=== PATIENT | female | born 1950 | race Caucasian/White ===

== ENCOUNTER 2020-11-20 14:52 | Outpatient (CLI) | payer MEDICARE, BC | END 2020-11-20 14:53 | disposition home or self-care (01) | LOC: BICMRI 14:52 | PROVIDERS: ATTEND Surgery | DX: M48.061 Spinal stenosis, lumbar region without neurogenic claudication (principal); M43.16 Spondylolisthesis, lumbar region; M47.816 Spondylosis without myelopathy or radiculopathy, lumbar region | CPT/HCPCS: 72110; 72148 ==

== ENCOUNTER 2021-06-21 12:03 | Outpatient (CLI) | payer MEDICARE, BC | END 2021-06-21 12:04 | disposition home or self-care (01) | LOC: TBSIIMAG 12:03 | PROVIDERS: ATTEND Orthopaedic Surgery | DX: M17.11 Unilateral primary osteoarthritis, right knee (principal) ==

== ENCOUNTER 2021-08-29 12:15 | Inpatient (IN) | payer MEDICARE, BC ==
[2021-08-28 15:24] VITALS: BMI 29.4
[2021-09-03] MEDS ORDERED: SUGAMMADEX SODIUM 200 MG/2 ML VIAL ONE (06:35)
[2021-09-03] MEDS ORDERED: Fentanyl 250 MCG/5 ML VIAL ONE ×3 (06:35→09:36)
[2021-09-03] MEDS ORDERED: Midazolam HCl 2 mg/2 ml Vial ONE (06:39)
[2021-09-03] MEDS ORDERED: Vancomycin 1 GM/200 ML BAG ONE (06:46)
[2021-09-03] MEDS ORDERED: Tranexamic Acid 1,000 MG/10 ML VIAL ONE (06:46)
[2021-09-03] MEDS ORDERED: Sodium Chloride 0.9% 100 ML ONE (06:46)
[2021-09-03] MEDS ORDERED: ceFAZolin Sodium (SDC) 2 GM/100 ML BAG ONE ×2 (06:53)
[2021-09-03] MEDS ORDERED: Ondansetron PF 4 MG/2 ML Vial ONE ×2 (07:01→11:37)
[2021-09-03] MEDS ORDERED: Famotidine/PF 20 mg/2ml Vial ONE (07:04)
[2021-09-03] MEDS ORDERED: Fentanyl 100 MCG/2 ML VIAL SLOW IVP PRN (07:21)
[2021-09-03] MEDS ORDERED: Promethazine HCl 25 MG/ML VIAL IM PRN ×2 (07:30→09:33)
[2021-09-03] MEDS ORDERED: Zolpidem Tartrate 5 MG TAB PO PRN ×2 (07:30→09:33)
[2021-09-03] MEDS ORDERED: Ropivacaine 0.2% 550 ML 550 ML NERVE BLCK SCH (07:30)
[2021-09-03] MEDS ORDERED: Ondansetron PF 4 MG/2 ML Vial IVP PRN ×2 (07:30→09:33)
[2021-09-03] MEDS ORDERED: HYDROcodone/Acetaminophen 10/325 mg Tablet PO PRN ×3 (07:30→09:33)
[2021-09-03] MEDS ORDERED: hydrALAZINE 20 MG/ML VIAL ONE ×2 (08:04→09:33)
[2021-09-03] MEDS ORDERED: HYDROmorphone 2 MG/ML VIAL ONE (09:07)
[2021-09-03] MEDS ORDERED: Ketorolac Tromethamine 30 MG/ML VIAL IM PRN (09:33)
[2021-09-03] MEDS ORDERED: diphenhydrAMINE 25 MG CAP PO PRN (09:33)
[2021-09-03] MEDS ORDERED: Acetaminophen 325 MG TAB PO PRN (09:33)
[2021-09-03] MEDS ORDERED: Aspirin 81 mg Enteric Coated Tablet PO SCH (10:15)
[2021-09-03] MEDS ORDERED: HYDROmorphone 0.5 MG/0.5 ML SYRINGE ONE (10:18)
[2021-09-03] MEDS ORDERED: Lidocaine 1% PF 5 ML VIAL ONE (11:37)
[2021-09-03] MEDS ORDERED: Dexamethasone 20 MG/5 ML VIAL ONE (11:37)
[2021-09-03] MEDS ORDERED: PROPOFOL 200 MG/20 ML VIAL ONE (11:37)
[2021-09-03] MEDS ORDERED: Bupivacaine HCl 0.5%/Epinephrine 1:200,000/PF 30 ml Vial ONE (11:37)
[2021-09-03] MEDS: HYDROcodone/Acetaminophen 10/325 mg Tablet PO PRN ×2 (12:13→21:07)
[2021-09-03] MEDS: Ketorolac Tromethamine 30 MG/ML VIAL IVP SCH ×3 (12:14→22:57)
[2021-09-03] MEDS ORDERED: CEFAZOLIN 2 GM, IV Admixture Fee-Chemo 1 UNITS in Sodium Chloride 0.9% 100 ML IVPB SCH (15:00)
[2021-09-03] MEDS: Sodium Chloride 0.9% 1,000 ML IV SCH ×2 (19:21→21:39)
[2021-09-03] MEDS: carBAMazepine 200 MG TAB PO SCH (19:24)
[2021-09-03] MEDS ORDERED: Vancomycin 1 GM in Premix Bag 1 BAG IVPB SCH (20:00)
[2021-09-03] MEDS: Loratadine 10 MG TAB PO SCH (21:07)
[2021-09-03] MEDS: Aspirin 81 mg Enteric Coated Tablet PO SCH (21:07)
[2021-09-03] MEDS: Azelastine 137 MCG/Spray 30 ML NS SCH (21:07)
[2021-09-03] MEDS: Fluticasone Propionate Nasal Spray 16 gm Bottle NASAL SCH (21:08)
[2021-09-04] MEDS ORDERED: CEFAZOLIN 2 GM, Admixture Fee 1 EACH in Sodium Chloride 0.9% 100 ML IVPB SCH (04:00)
[2021-09-04 05:20] LABS: Hemoglobin 10.8 g/dL (12.0-16.0); Mean Corpuscular HGB CONC 33.5 g/dL (32.0-36.0); Mean Corpuscular Hemoglobin 32.3 pg (27.0-31.0); Mean Corpuscular Volume 96.3 fL (78.0-98.0); Mean Platelet Volume 7.3 fL (7.4-10.4); Platelet Count 153 thou/uL (130-400); RBC Distribution Width 12.5 % (11.5-14.5); Red Blood Cell (RBC) Count 3.34 mill/uL (4.20-5.40); White Blood Cell (WBC) Count 8.9 thou/uL (4.8-10.8)
[2021-09-04] MEDS: Ketorolac Tromethamine 30 MG/ML VIAL IVP SCH ×3 (05:44→18:30)
[2021-09-04] MEDS: Sodium Chloride 0.9% 1,000 ML IV SCH ×2 (06:37→16:54)
[2021-09-04] MEDS: Senokot S 8.6-50 MG TAB PO SCH ×2 (10:05→20:16)
[2021-09-04] MEDS: Aspirin 81 mg Enteric Coated Tablet PO SCH ×2 (10:05→20:17)
[2021-09-04] MEDS: Ascorbic Acid 500 mg Chewable Tablet PO SCH (10:05)
[2021-09-04] MEDS: Multivitamin W/ Minerals 1 TAB PO SCH (10:06)
[2021-09-04] MEDS: Fluticasone Propionate Nasal Spray 16 gm Bottle NASAL SCH ×2 (10:06→20:17)
[2021-09-04] MEDS: Ferrous Gluconate 324 MG TAB PO SCH ×2 (10:06→18:29)
[2021-09-04] MEDS: Azelastine 137 MCG/Spray 30 ML NS SCH ×2 (10:07→20:17)
[2021-09-04] MEDS: carBAMazepine 200 MG TAB PO SCH ×2 (10:10→18:28)
[2021-09-04] MEDS: HYDROcodone/Acetaminophen 10/325 mg Tablet PO PRN (10:32)
[2021-09-04] MEDS: Loratadine 10 MG TAB PO SCH (20:17)
[2021-09-05] MEDS: Ketorolac Tromethamine 30 MG/ML VIAL IVP SCH ×2 (00:05→05:04)
[2021-09-05] MEDS: Sodium Chloride 0.9% 1,000 ML IV SCH ×2 (00:10→17:54)
[2021-09-05 05:38] LABS: Hemoglobin 9.8 g/dL (12.0-16.0); Mean Corpuscular Volume 96.9 fL (78.0-98.0); Platelet Count 141 thou/uL (130-400); RBC Distribution Width 12.5 % (11.5-14.5); Red Blood Cell (RBC) Count 3.07 mill/uL (4.20-5.40); White Blood Cell (WBC) Count 8.8 thou/uL (4.8-10.8)
[2021-09-05] MEDS: Fluticasone Propionate Nasal Spray 16 gm Bottle NASAL SCH (09:34)
[2021-09-05] MEDS: Azelastine 137 MCG/Spray 30 ML NS SCH (09:34)
[2021-09-05] MEDS: Ascorbic Acid 500 mg Chewable Tablet PO SCH (09:35)
[2021-09-05] MEDS: Aspirin 81 mg Enteric Coated Tablet PO SCH (09:36)
[2021-09-05] MEDS: Senokot S 8.6-50 MG TAB PO SCH (09:36)
[2021-09-05] MEDS: Ferrous Gluconate 324 MG TAB PO SCH (09:36)
[2021-09-05] MEDS: Multivitamin W/ Minerals 1 TAB PO SCH (09:36)
[2021-09-05] MEDS: carBAMazepine 200 MG TAB PO SCH (10:38)
[2021-09-05] MEDS: HYDROcodone/Acetaminophen 10/325 mg Tablet PO PRN (10:39)
[2021-09-05 13:13] VITALS: BP 181/77; TEMP 97.6
== END 2021-09-05 13:15 | disposition home or self-care (01) | DRG 470 ==
LOC: SDC 09-03 05:23 → SURG A 09-03 05:27 → SJJU 09-03 11:00 → EDSTATUS 09-03 12:15
PROVIDERS: ADMIT Orthopaedic Surgery; ATTEND Orthopaedic Surgery
PROC: 0SR90J9 Replacement of Right Hip Joint with Synthetic Substitute, Cemented, Open Approach (ICD-10-PCS; principal; 2021-09-03)
DX: M17.11 Unilateral primary osteoarthritis, right knee (principal); Z20.822 Contact with and (suspected) exposure to COVID-19; G47.33 Obstructive sleep apnea (adult) (pediatric); G50.0 Trigeminal neuralgia; J30.2 Other seasonal allergic rhinitis; Z88.6 Allergy status to analgesic agent; Z88.8 Allergy status to other drugs, medicaments and biological substances; Z90.710 Acquired absence of both cervix and uterus; Z79.899 Other long term (current) drug therapy
CPT/HCPCS: 36415; 85027; A4306; C1713; C1776; J0360; J0690; J1100; J1170; J1885; J2250; J2405; J2704; J2795; J3010; J3370; J3490; S0028

== ENCOUNTER 2021-08-29 12:48 | Outpatient (CLI) | payer MEDICARE, BC ==
[2021-08-29 14:30] LABS: #Basophils 0.1 10x3/uL (0.0-0.2); #Eosinphils 0.1 10x3/uL (0.0-0.5); #Monocytes 0.5 10x3/uL (0.0-1.1); #Neutrophils 6.1 10x3/uL (1.5-8.4); %Basophils 0.8 % (0.0-2.0); %Eosinophils 1.2 % (0.0-6.0); %Lymphocytes 25.5 % (18.0-47.0); %Monocytes 5.6 % (0.0-10.0); %Neutrophils 66.7 % (40.0-75.0); Hemoglobin 12.6 g/dL (12.0-15.5); Mean Corpuscular HGB CONC 32.4 g/dL (32.0-36.0); Mean Corpuscular Volume 95.6 fl (81.6-98.3); Mean Platelet Volume 10.1 fl (7.4-10.4); Platelet Count 199 10x3/uL (150-450); RBC Distribution Width 13.3 % (11.5-14.5); Red Blood Cell (RBC) Count 4.07 10x6/uL (3.90-5.03); White Blood Cell (WBC) Count 9.1 10x3/uL (3.5-10.5)
[2021-08-29 14:46] LABS: INR-International Normal Ratio 0.9; Prothrombin Time 10.4 sec (9.5-12.1)
[2021-08-29 14:50] LABS: Anion Gap 16 mmol/L (10-20); BUN (Urea Nitrogen) 19 mg/dL (9.8-20.1); Calc. Creatinine Clearance 0 mL/min (70-130); Calcium 9.2 mg/dL (7.8-10.44); Carbon Dioxide 24 mmol/L (23-31); Chloride 102 mmol/L (98-107); Glucose 85 mg/dL (80-115); Potassium 3.8 mmol/L (3.5-5.1); Sodium 138 mmol/L (136-145)
[2021-08-30 00:06] LABS: SARS-CoV-2 PCR by NAA DETECTED (NotDetected)
== END 2021-08-29 12:49 | disposition home or self-care (01) ==
LOC: LABBT 12:48
PROVIDERS: ATTEND Orthopaedic Surgery
DX: U07.1 COVID-19 (principal); Z01.818 Encounter for other preprocedural examination
CPT/HCPCS: 80048; 85025; 85610; 87081; 93005; U0003; U0005; 93010

== ENCOUNTER 2023-04-28 12:16 | Outpatient (CLI) | payer MEDICARE, BC ==
[2023-04-28 13:57] LABS: Bilirubin Neg (Negative); Blood, Urine Negative (Negative); Clarity Clear (Clear); Glucose, Urine (Dipstick) Normal (Negative); Ketone, Urine Negative (Negative); Leukocyte Negative (Negative); Nitrite Negative (Negative); Protein, Urine (Dipstick) Negative (Neg-Trace); Urobilinogen Normal mg/dL (Less than 2)
[2023-04-28 14:05] LABS: Hematocrit 38.1 % (34.9-44.5); Mean Corpuscular HGB CONC 34.1 g/dL (32.0-36.0); Mean Corpuscular Hemoglobin 31.9 pg (27.0-33.0); Mean Corpuscular Volume 93.6 fl (81.6-98.3); Mean Platelet Volume 10.1 fl (7.4-10.4); Platelet Count 201 10x3/uL (150-450); RBC Distribution Width 12.9 % (11.5-14.5); Red Blood Cell (RBC) Count 4.07 10x6/uL (3.90-5.03); White Blood Cell (WBC) Count 6.3 10x3/uL (3.5-10.5)
[2023-04-28 14:14] LABS: INR-International Normal Ratio 0.9; PTT 25.7 sec (22.0-33.0); Prothrombin Time 10.2 sec (9.5-12.1)
[2023-04-28 14:30] LABS: Anion Gap 13 mmol/L (10-20); BUN (Urea Nitrogen) 17 mg/dL (9.8-20.1); Calc. Creatinine Clearance 0 mL/min (70-130); Calcium 9.3 mg/dL (7.8-10.44); Carbon Dioxide 26 mmol/L (23-31); Chloride 105 mmol/L (98-107); Estimated GFR 92; Glucose 91 mg/dL (83-110); Potassium 3.9 mmol/L (3.5-5.1); Sodium 140 mmol/L (136-145)
[2023-04-28 14:32] LABS: RBC/HPF 0-3 HPF (0-3); Squamous Epithelial 0-3 HPF (0-3); WBC/HPF None Seen HPF (0-3)
[2023-04-28 14:33] LABS: Bacteria/HPF None Seen HPF (None Seen)
== END 2023-04-28 12:17 | disposition home or self-care (01) ==
LOC: LABBT 12:16
PROVIDERS: ATTEND Urology
DX: Z01.818 Encounter for other preprocedural examination (principal); N20.0 Calculus of kidney; M54.32 Sciatica, left side; N39.46 Mixed incontinence; R15.2 Fecal urgency; R15.9 Full incontinence of feces
CPT/HCPCS: 71046; 80048; 81001; 85027; 85610; 85730; 87086; 93005; 93010

== ENCOUNTER 2023-05-08 05:33 | Day surgery (SDC) | payer MEDICARE, BC ==
[2023-04-28 13:06] VITALS: BMI 29.5
[2023-05-08] MEDS ORDERED: CEFAZOLIN 2 GM VIAL ONE (06:41)
[2023-05-08] MEDS ORDERED: Sodium Chloride 0.9% 100 ML ONE (06:41)
[2023-05-08] MEDS ORDERED: fentaNYL PF 100 MCG/2 ML SYRINGE ONE (06:45)
[2023-05-08] MEDS ORDERED: Vancomycin 1 GM VIAL ONE (07:09)
[2023-05-08] MEDS ORDERED: Bupivacaine 0.25% HCL 30 ML VIAL ONE (07:09)
[2023-05-08] MEDS ORDERED: Famotidine/PF 20 mg/2ml Vial ONE (07:30)
[2023-05-08] MEDS ORDERED: SUGAMMADEX SODIUM 200 MG/2 ML VIAL ONE (07:30)
[2023-05-08] MEDS ORDERED: MINERAL OIL/WHITE PETROLATUM 3.5 GM TUBE ONE (07:39)
[2023-05-08] MEDS ORDERED: EPINEPHrine 1 MG/ML AMP ONE (07:46)
[2023-05-08] MEDS ORDERED: Rocuronium Bromide 10 MG/ML (10ML VIAL) ONE (07:50)
[2023-05-08] MEDS ORDERED: ePHEDrine Sulfate 50 MG/10 ML VIAL ONE (07:50)
[2023-05-08] MEDS ORDERED: Lidocaine 1% PF 5 ML VIAL ONE (07:50)
[2023-05-08] MEDS ORDERED: PROPOFOL 200 MG/20 ML VIAL ONE (07:50)
[2023-05-08] MEDS ORDERED: Dexamethasone 20 MG/5 ML VIAL ONE (07:50)
[2023-05-08] MEDS ORDERED: Ondansetron PF 4 MG/2 ML Vial ONE (07:50)
[2023-05-08] MEDS ORDERED: fentaNYL 50 mcg/mL 1 mL Vial ONE (09:51)
== END 2023-05-08 11:10 | disposition home or self-care (01) ==
LOC: SDC 05:33
PROVIDERS: ATTEND Urology
PROC: 0JH Subcutaneous Tissue and Fascia, Insertion (ICD-10-PCS; principal; 2023-05-08)
DX: N32.81 Overactive bladder (principal); N39.41 Urge incontinence; K21.9 Gastro-esophageal reflux disease without esophagitis; G47.33 Obstructive sleep apnea (adult) (pediatric); Z88.5 Allergy status to narcotic agent; Z91.011 Allergy to milk products
CPT/HCPCS: 64561; 72220; C1897; J3010; J0171; J1100; J2405; J2704; J3370; J3490; S0020; S0028

== ENCOUNTER 2023-05-14 08:48 | Day surgery (SDC) | payer MEDICARE, BC ==
[2023-05-13 11:50] VITALS: BMI 29.5
[2023-05-14] MEDS ORDERED: fentaNYL PF 100 MCG/2 ML SYRINGE ONE (12:18)
[2023-05-14] MEDS ORDERED: Bupivacaine 0.25% HCL 30 ML VIAL ONE (12:23)
[2023-05-14] MEDS ORDERED: Bacitracin Zinc Ointment 30 gm TUBE ONE (12:23)
[2023-05-14] MEDS ORDERED: Sevoflurane 250 ML INH ANEST BOTTLE ONE (12:24)
[2023-05-14] MEDS ORDERED: CEFAZOLIN 2 GM VIAL ONE (12:36)
[2023-05-14] MEDS ORDERED: Sodium Chloride 0.9% 100 ML ONE (12:36)
[2023-05-14] MEDS ORDERED: Dexamethasone 20 MG/5 ML VIAL ONE (12:51)
[2023-05-14] MEDS ORDERED: Lidocaine 1% PF 5 ML VIAL ONE (12:51)
[2023-05-14] MEDS ORDERED: PROPOFOL 200 MG/20 ML VIAL ONE (12:51)
[2023-05-14] MEDS ORDERED: Ondansetron PF 4 MG/2 ML Vial ONE (12:51)
[2023-05-14] MEDS ORDERED: ePHEDrine Sulfate 50 MG/10 ML VIAL ONE (12:51)
[2023-05-14] MEDS ORDERED: Rocuronium Bromide 10 MG/ML (10ML VIAL) ONE (12:51)
[2023-05-14] MEDS ORDERED: SUGAMMADEX SODIUM 200 MG/2 ML VIAL ONE (13:11)
[2023-05-14] MEDS ORDERED: Vancomycin 500 MG VIAL (PEDI) ONE (13:11)
[2023-05-14] MEDS ORDERED: Vancomycin 1 GM VIAL ONE (13:11)
== END 2023-05-14 15:45 | disposition home or self-care (01) ==
LOC: SDC 08:48
PROVIDERS: ATTEND Urology
PROC: 0JH60BZ Insertion of Single Array Stimulator Generator into Chest Subcutaneous Tissue and Fascia, Open Approach (ICD-10-PCS; principal; 2023-05-14)
DX: N32.81 Overactive bladder (principal); R15.9 Full incontinence of feces; Z88.5 Allergy status to narcotic agent; Z91.011 Allergy to milk products; Z88.8 Allergy status to other drugs, medicaments and biological substances
CPT/HCPCS: 64590; C1713; C1767; C1787; J1100; J2405; J2704; J3370; J3371; J3490; S0020